=== PATIENT | female | born 1965 | race Caucasian/White ===

== ENCOUNTER 2017-12-03 04:59 | Inpatient (IN) | payer OTHER ==
[2017-11-26 11:52] VITALS: BMI 27.4
[~2017-12-03 04:59] MED LIST: BUPIVACAINE HCL/PF 0.5% (5MG/ML) 10 ML VIAL IJ ONE; ceFAZolin SODIUM 1 GM VIAL IVPB ONE
[2017-12-03] MEDS ORDERED: ROPIVACAINE HCL 0.5% 30ML VIAL ONE (07:50)
[2017-12-03] MEDS ORDERED: MIDAZOLAM HCL 2 MG/2 ML SINGLE DOSE VIAL ONE ×2 (07:51)
--- NOTE | 2017-12-03 08:18 | HP ---
Past Medical History - Primary Care Physician PCP:: Gregorio Coates - Admission Chief Complaint: pelvic pain, dysmenorrhia , fibroid uterus History of Present Illness: 52 yo f g 2 p2 2 previous c/s , hx of fibroid uterus , pelvic pain, dysmenorrhia admitted for supracervical abdominal hysterectomy, bilateral salpingectomy, rba discussed History Source: Patient Limitations to Obtaining History: No Limitations - Past Medical History Endocrine: Yes: Hypothyroidism - Past Surgical History Past Surgical History: Yes: Hx Myomectomy: No Hx Transabdominal Cerclage: No - Smoking History Smoking history: Never smoked - Alcohol/Substance Use Hx Alcohol Use: No - Social History Usual Living Arrangement: Yes: With Spouse History of Recent Travel: No Home Medications - Allergies Allergies/Adverse Reactions: Allergies Allergy/AdvReac Type Severity Reaction Status Date / Time hydrocodone AdvReac Severe Verified 11/26/17 11:43 - Home Medications Home Medications: Ambulatory Orders Levothyroxine [Synthroid -] 88 mcg PO DAILY 11/26/17 Review of Systems - Review of Systems Constitutional: reports: No Symptoms Eyes: reports: No Symptoms HENT: reports: No Symptoms Neck: reports: No Symptoms Cardiovascular: reports: No Symptoms Respiratory: reports: No Symptoms Gastrointestinal: reports: Bloating Genitourinary: reports: Frequency, Pain, Urgency Breasts: reports: No Symptoms Reported Musculoskeletal: reports: No Symptoms Integumentary: reports: No Symptoms Neurological: reports: No Symptoms Endocrine: reports: No Symptoms Hematology/Lymphatic: reports: No Symptoms Psychiatric: reports: No Symptoms 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: Vital Signs Temperature 97.9 F 12/03/17 07:38 Pulse Rate 66 12/03/17 07:38 Respiratory Rate 18 12/03/17 07:38 Blood Pressure 120/89 12/03/17 07:38 O2 Sat by Pulse Oximetry (%) 100 12/03/17 07:38 Constitutional: Yes: Well Nourished, No Distress, Calm Eyes: Yes: WNL, Conjunctiva Clear, EOM Intact HENT: Yes: WNL, Atraumatic, Normocephalic Neck: Yes: WNL, Supple, Trachea Midline Cardiovascular: Yes: WNL, Regular Rate and Rhythm Respiratory: Yes: WNL, Regular, CTA Bilaterally Gastrointestinal: Yes: WNL ...Rectal Exam: Yes: WNL Renal/: Yes: WNL External Genitalia: Yes: Normal Vaginal Exam: Yes: Normal Cervix: Yes: Normal Uterus: Yes: Anteverted, Enlarged, Lumpy, Mass, Tender Adnexa: Not Palpable: Left, Right Breast(s): Yes: WNL Musculoskeletal: Yes: WNL Extremities: Yes: WNL Integumentary: Yes: WNL Neurological: Yes: WNL, Alert, Oriented ...Motor Strength: WNL Psychiatric: Yes: WNL, Alert, Oriented Problem List - Problem (1) Pelvic pain Code(s): R10.2 - PELVIC AND PERINEAL PAIN (2) Dysmenorrhea Code(s): N94.6 - DYSMENORRHEA, UNSPECIFIED (3) Leiomyoma of uterus Code(s): D25.9 - LEIOMYOMA OF UTERUS, UNSPECIFIED Assessment/Plan admit for supracervical abdominal hysterectomy, bilateral salpingectomy, rba discussed
[2017-12-03] MEDS ORDERED: CEFAZOLIN 1 GM/D5W 1 GM/50 ML BAG IVPB ONE (09:26)
[2017-12-03] MEDS ORDERED: fentaNYL CITRATE 250 MCG/5 ML VIAL ONE (09:38)
[2017-12-03] MEDS ORDERED: DEXAMETHASONE SOD PHOSPHATE 4 MG/1 ML VIAL ONE (09:38)
[2017-12-03] MEDS ORDERED: LIDOCAINE HCL/PF 2% SDV 5ML VIAL ONE (09:39)
[2017-12-03] MEDS ORDERED: ROCURONIUM BROMIDE 50 MG/5 ML VIAL ONE ×2 (09:40→10:47)
[2017-12-03] MEDS ORDERED: PROPOFOL 20 ML ONE (09:40)
[2017-12-03] MEDS ORDERED: ceFAZolin SODIUM 1 GM VIAL ONE (09:44)
[2017-12-03] MEDS ORDERED: ceFAZolin SODIUM 1 GM VIAL IVPB ONE (09:53)
[2017-12-03] MEDS ORDERED: HYDROmorphone HCL CARPU-JECT 1 MG/1 ML DISP.SYRIN IVPUSH PRN (10:25)
[2017-12-03] MEDS ORDERED: PROMETHAZINE HCL 25 MG/1 ML VIAL IVPUSH PRN (10:25)
[2017-12-03] MEDS ORDERED: ONDANSETRON 4 MG/2 ML VIAL IVPUSH PRN ×3 (10:25→13:31)
[2017-12-03] MEDS ORDERED: DEXAMETHASONE SOD PHOSPHATE 4 MG/1 ML VIAL IVPUSH PRN (10:26)
[2017-12-03] MEDS ORDERED: PROMETHAZINE HCL 25 MG/1 ML VIAL IVPB PRN (10:26)
[2017-12-03] MEDS ORDERED: HYDROmorphone *PCA* 10MG/50ML DISP.SYRIN PCA SCH (10:30)
[2017-12-03] MEDS ORDERED: GLYCOPYRROLATE 0.2 MG/1 ML VIAL ONE (10:33)
[2017-12-03] MEDS ORDERED: NEOSTIGMINE METHYLSULFATE 0.5 MG/ML - 10 ML MDV ONE (10:33)
[2017-12-03] MEDS ORDERED: PROMETHAZINE HCL 25 MG/1 ML VIAL IVPB ONE (11:30)
[2017-12-03] MEDS ORDERED: PROMETHAZINE HCL 25 MG/1 ML VIAL ONE (11:32)
[2017-12-03] MEDS ORDERED: HYDROmorphone HCL CARPU-JECT 2 MG/1 ML DISP.SYRIN ONE (11:33)
[2017-12-03] MEDS ORDERED: HYDROmorphone *PCA* 10MG/50ML DISP.SYRIN PCA ONE ×2 (11:33→11:35)
[2017-12-03] MEDS ORDERED: HYDROmorphone HCL CARPU-JECT 2 MG/1 ML DISP.SYRIN IVPUSH ONE (11:35)
[2017-12-03] MEDS ORDERED: IBUPROFEN 800 MG/8 ML IJ IVPB PRN (13:31)
[2017-12-03] MEDS ORDERED: ELECTROLYTE-148 SOLN 1,000 ML IV SCH (13:45)
[2017-12-03] MEDS: CEFAZOLIN 1 GM PUSH 1 GM/10 ML DISP.SYRIN IVPUSH SCH (17:53)
[2017-12-04] MEDS: CEFAZOLIN 1 GM PUSH 1 GM/10 ML DISP.SYRIN IVPUSH SCH (01:54)
[2017-12-04] MEDS: IBUPROFEN 600 MG TABLET (FP) PO PRN ×3 (06:37→20:11)
[2017-12-04] MEDS: LEVOTHYROXINE NA 88 MCG TABLET (FP) PO SCH (06:38)
[2017-12-04] MEDS ORDERED: BISACODYL 10 MG SUPP.RECT PR PRN (08:44)
--- NOTE | 2017-12-04 08:51 | PN ---
Progress Note (short form) - Note Progress Note: pod1 ding well, has mild gas apin Last Vital Signs Temp Pulse Resp BP Pulse Ox 98.4 F 72 20 115/71 97 12/04/17 06:00 12/04/17 06:00 12/04/17 06:00 12/04/17 06:00 12/03/17 21:00 abdomen soft, no distension, no cva , BS present incision dry, clean no vaginal bleeding no calf tenderness puentes clear urine impression pod 1 stable plan ambulate, oob , advance diet . cbc pain management Problem List - Problems (1) Pelvic pain Code(s): R10.2 - PELVIC AND PERINEAL PAIN (2) Dysmenorrhea Code(s): N94.6 - DYSMENORRHEA, UNSPECIFIED (3) Leiomyoma of uterus Code(s): D25.9 - LEIOMYOMA OF UTERUS, UNSPECIFIED
[2017-12-04 09:09] LABS: ANION GAP 7 (8-16); BLOOD UREA NITROGEN 8 mg/dL (7-18); CALCIUM 8.3 mg/dL (8.5-10.1); CHLORIDE 107 mmol/L (98-107); CO2 26 mmol/L (21-32); CREATININE 0.6 mg/dL (0.55-1.02); GLUCOSE,RANDOM 106 mg/dL (74-106); POTASSIUM 3.8 mmol/L (3.5-5.1); SODIUM 140 mmol/L (136-145)
[2017-12-04 09:10] LABS: HEMATOCRIT 35.5 % (32.4-45.2); HEMOGLOBIN 11.5 GM/dL (10.7-15.3); MCH 30.4 pg (25.7-33.7); MCHC 32.4 g/dl (32.0-36.0); MEAN CELL VOLUME 93.9 fl (80-96); MEAN PLT VOLUME 9.6 fl (7.5-11.1); PLATELET COUNT 174 K/MM3 (134-434); RBC 3.78 M/mm3 (3.60-5.2); WHITE BLOOD COUNT 10.1 K/mm3 (4.0-10.0)
--- NOTE | 2017-12-04 09:11 | OP ---
DATE OF OPERATION: 12/03/2017 PREOPERATIVE DIAGNOSES: Pelvic pain, dysmenorrhea, fibroid uterus. POSTOPERATIVE DIAGNOSES: Pelvic pain, dysmenorrhea, fibroid uterus. PROCEDURE: Supracervical abdominal hysterectomy and bilateral salpingectomy. SURGEON: Joni Kilpatrick MD WELDER PRODUCTION LINE COMBINATION: Herlinda Dan MD ANESTHESIA: General. ANESTHESIOLOGIST: Js Toney MD ESTIMATED BLOOD LOSS: 100 mL. DESCRIPTION OF OPERATION: Patient was taken to the operating room. Under adequate general anesthesia in dorsal supine position, abdomen and perineum were prepped and draped. Pfannenstiel abdominal skin incision was made over the previous incision. Abdominal wall was cut layer by layer until peritoneum was exposed and incised. Upon entering the abdominal cavity, upper abdomen was checked, was normal. Bowels were packed away. Uterus had a large fibroid intramural. Both ovaries were normal. Both tubes were normal. Bladder was normal. Then round ligament was identified bilaterally and clamped with the bipolar cautery, cauterized and cut. Then anterior leaf of broad ligament was opened. Bladder was pushed down and a hole was made in the broad ligament and then ovarian ligament was grasped with the bipolar cautery, cauterized and cut bilaterally. Then both tubes were removed along the mesosalpinx with the LigaSure bipolar cautery and then bladder was further pushed down. Uterine artery was identified bilaterally, clamped with a Saud clamp, cut and the clamp replaced with 0 Vicryl suture bilaterally. Paracervical area was grasped with a Saud clamp, cut and the clamp replaced with 0 Vicryl suture bilaterally and the uterus was amputated above the cervix with the cautery and then the cervix was sutured with interrupted suture of 0 Vicryl. Hemostasis was established and then reperitonealization of the pelvic floor was done with continuous suture of 3-0 Vicryl. Pelvic cavity several times irrigated and no active bleeding was seen. Both ovaries were checked, were normal. Upper abdomen normal. Then all the lap pads, sponge count and instrument count were correct. The peritoneum was closed with 0 Vicryl continuous suture. Muscle layer brought together with interrupted suture of 0 Vicryl. Fascia was closed with 0 Vicryl continuous suture. Subcutaneous fat with interrupted suture of 0 Vicryl and the skin was closed with 4-0 Biosyn continuous subcuticular suture. Patient tolerated the procedure well. Left the OR in good condition. JONI KILPATRICK M.D. [id number]
[2017-12-04] MEDS: ENOXAPARIN NA (PORCINE) 40 MG/0.4 ML DISP.SYRIN SQ SCH (09:53)
[2017-12-04] MEDS: ACETAMINOPHEN 325 MG TABLET (FP) PO PRN (12:37)
[2017-12-04] MEDS: SIMETHICONE 80 MG TAB.CHEW (FP) PO PRN (12:38)
[2017-12-04] MEDS ORDERED: PCA PUMP KEY 1 EACH EACH ONE ×2 (13:49→13:51)
--- NOTE | 2017-12-04 14:05 | PN ---
Progress Note (short form) - Note Progress Note: Patient seen. Doing well on POD#1 after supracervical HYST and BTL under GETA. 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 Patient states she doesn't "do well" with opiods and prefers to take only motrin and tylenol. Today pt is c/o intermittent pain being succefully rxd with above. No sig N/V/pruritis/sedation. No recall or anesthesia related complications. Plan: cont present managment and recall prn
--- NOTE | 2017-12-04 15:50 | PATH ---
Surgical Pathology Report Patient Name: BRITNI RAO [facility]. Rec. 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 Specimen(s) Received A: LEFT FALLOPIAN TUBE WITH CYST B: RIGHT FALLOPIAN TUBE C: UTERUS Clinical History Leiomyoma Final Diagnosis A. FALLOPIAN TUBE, LEFT, SALPINGECTOMY: FULL LUMINAL PORTION OF FALLOPIAN TUBE WITH EDEMA AND PARATUBAL CYSTS. B. FALLOPIAN TUBE, RIGHT, SALPINGECTOMY: FULL LUMINAL PORTION OF FALLOPIAN TUBE WITH PARATUBAL CYSTS. C. UTERUS, SUPRACERVICAL HYSTERECTOMY: PROLIFERATIVE ENDOMETRIUM. MYOMETRIUM WITH INTRAMURAL LEIOMYOMA(TA) AND ADENOMYOSIS. BENIGN ENDOCERVICAL TISSUE. Electronically Signed Ailyn Wright M.D. Gross Description A. Received in formalin labeled "left tube with cyst," is a 6.5 cm in length fimbriated fallopian tube. The outer surface is nguyen purple with a 3.3 cm in greatest dimension attached paratubal cyst. The cyst contains clear serous fluid. Sectioning of the fallopian tube reveals an unremarkable lumen. Also received within the same container is a 1.8 x 1.4 x 0.8 cm portion of soft tissue. Jump Roll Operator sections are submitted in 3 cassettes as follows: 1-fimbria; 2-cross sections of fallopian tube and paratubal cyst; 3-personnel representative sections from separately received portion of tissue. B. Received in formalin labeled "right tube," is a 3.5 cm in length fimbriated fallopian tube. The outer surface is nguyen purple with fibrous adhesions. Sectioning reveals an unremarkable lumen. Jump Roll Operator sections are submitted in 2 cassettes as follows: 1-fimbria; 2-cross sections of fallopian tube. C. Received in formalin labeled "uterus," is a 535 g supracervically amputated uterus with no attached adnexa. The specimen measures 10.5 cm from left to right, 9 cm from superior to inferior and 7.5 cm from anterior to posterior. The serosa is ac-pink and smooth. The endometrial cavity is distorted by a large, bulging intramural nodule. The endometrial cavity measures 6 cm in length and 1.2 cm from cornu to cornu. The endometrium is red and averages 0.1 cm in thickness. The myometrium displays multiple intramural nodules, measuring up to 8 cm in greatest dimension. The cut surface of the nodules is ac, firm to rubbery with a whorled architecture. No areas of hemorrhage or necrosis are identified. The remaining myometrium is ac-pink and averages 4 cm in thickness. Jump Roll Operator sections are submitted in 11 cassettes as follows: 1-cervical stump margin of resection; 0-1-bzfstotuebdcaf; 6-9-largest intramural nodule; 14-98-qjixwxyisi intramural nodules. 12/03/2017 saudi12/03/2017
[2017-12-05] MEDS: LEVOTHYROXINE NA 88 MCG TABLET (FP) PO SCH (06:23)
[2017-12-05] MEDS: IBUPROFEN 600 MG TABLET (FP) PO PRN ×2 (06:26→11:29)
[2017-12-05] MEDS: ENOXAPARIN NA (PORCINE) 40 MG/0.4 ML DISP.SYRIN SQ SCH (09:34)
[2017-12-05] MEDS: SIMETHICONE 80 MG TAB.CHEW (FP) PO PRN (11:29)
[2017-12-05] MEDS: ACETAMINOPHEN 325 MG TABLET (FP) PO PRN (11:30)
[2017-12-05 11:43] VITALS: BP 122/76; PULSE 62; TEMP 98.4
--- NOTE | 2017-12-05 14:29 | DS ---
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: Vital Signs Temperature 98.4 F 12/05/17 10:00 Pulse Rate 62 12/05/17 10:00 Respiratory Rate 18 12/05/17 10:00 Blood Pressure 122/76 12/05/17 10:00 O2 Sat by Pulse Oximetry (%) 98 12/04/17 21:00 Constitutional: Yes: Well Nourished, No Distress, Calm Eyes: Yes: WNL, Conjunctiva Clear, EOM Intact HENT: Yes: WNL, Atraumatic, Normocephalic Neck: Yes: WNL, Supple, Trachea Midline Cardiovascular: Yes: WNL, Regular Rate and Rhythm Respiratory: Yes: WNL, Regular, CTA Bilaterally Gastrointestinal: Yes: WNL ...Rectal Exam: Yes: WNL Renal/: Yes: WNL Breast(s): Yes: WNL Musculoskeletal: Yes: WNL Extremities: Yes: WNL Edema: No Integumentary: Yes: WNL Wound/Incision: Yes: Clean/Dry, Well Approximated, Sutures Intact Neurological: Yes: WNL, Alert, Oriented ...Motor Strength: WNL Psychiatric: Yes: WNL, Alert, Oriented Labs: CBC, BMP 12/04/17 08:00 12/04/17 08:00 Discharge Summary Reason For Visit: LEIOMYOMA INTRAMURAL UTERUS pelvic pain, fibroid uterus Other Procedures: supracervical abdominal hysterectomy Condition: Good - Instructions Diet, Activity, Other Instructions: regular diet, follow up office 1 week Referrals: Gregorio Coates MD [Staff Physician] - 1 Week (call office for appointment. ) Disposition: HOME - Home Medications Comprehensive Discharge Medication List: Ambulatory Orders Levothyroxine [Synthroid -] 88 mcg PO DAILY 11/26/17 Ibuprofen [Motrin -] 600 mg PO QID #28 tablet 12/05/17
== END 2017-12-05 12:20 | disposition home or self-care (01) | DRG 519 ==
LOC: JSAMEDAYSX 04:59 → EDSTATUS 09:00 → J3W 13:50
PROVIDERS: ADMIT Obstetrics & Gynecology; ATTEND Obstetrics & Gynecology
PROC: 0UT70ZZ Resection of Bilateral Fallopian Tubes, Open Approach (ICD-10-PCS; 2017-12-03)
PROC: 0UT90ZL Resection of Uterus, Supracervical, Open Approach (ICD-10-PCS; principal; 2017-12-03 09:00)
DX: D25.1 Intramural leiomyoma of uterus (principal); N80.0 Endometriosis of uterus; N83.8 Other noninflammatory disorders of ovary, fallopian tube and broad ligament; R10.2 Pelvic and perineal pain; N94.6 Dysmenorrhea, unspecified; E03.9 Hypothyroidism, unspecified
CPT/HCPCS: 36415; 80048; 84703; 85027; 86850; 86900; 86901; 88302-TC; 88307-TC; 94010; 94760